=== PATIENT | female | born 1980 | race Caucasian/White ===

== ENCOUNTER → 2017-02-22 | Day surgery (SDC) | payer OTHER ==
[2017-02-22] VITALS (9 sets, daily range): BP systolic 112–163; BP diastolic 56–99; PULSE 63–91; TEMP 36.5; O2SAT 95–100; Ht 170.2 cm; Wt 86.3 kg
[~2017-02-22] VITALS: Ht 170.2 cm; Wt 86.3 kg
[~2017-02-22] MED LIST: ASPCH81X PO; ASTN; ATOR-26 PO; CHOLTAB11 PO; HYDR-3126 PO; LIDOCAINE HCL 2% 2 ML VIAL (20MG/ML) ONE; PRENTAB26 PO; PROPOFOL IV EMULSION 10 MG/ML 20 ML VIAL IV ONE
--- NOTE | 2017-02-22 07:32 | History & Physical Bridge Note ---
H&P Re-Evaluation Bridge Note: I have examined the patient, reviewed the History & Physical and in the interval since the performance of the History & Physical I have noted the following changes of clinical significance: Last Vital Signs Documentation Date Time Temp Pulse Resp B/P (MAP) Pulse Ox O2 Delivery O2 Flow Rate FiO2 02/22/17 07:19 36.5 81 16 140/89 98 Room Air No changes noted. Will proceed with EMILE as planned.
--- NOTE | 2017-02-22 08:10 | Cardiology Procedure Brief Nt ---
Preliminary Cardiology Note Procedure Date Feb 22, 2017. Pre-Procedure Diagnosis Stroke , PFO Post-Procedure Diagnosis stroke, PFO, ASD Procedure(s) Performed EMILE Filling Operator BUBBA Forbes DO Bobj Developer(s) CHESTER Arthur Estimated Blood Loss none Preliminary Findings The interatrial septum is aneurysmal. There are two defects in the interatrial septum, consistent with a PFO and small ASD, R to left and left to right shunts noted. Recommendations Consult interventional cardiology at [facility] for discussion regarding percutaneous closure, Outpt visit already scheduled for tomorrow. 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
--- NOTE | 2017-02-22 08:13 | Discharge Instructions ---
Discharge Instructions Procedure Procedure Date: Feb 22, 2017. Reason for Visit: Hx Of Stroke , assess for PFO Discharge Discharge Date: Feb 22, 2017. Discharge Diagnosis: PFO, small ASD Last Recorded Wt (Kilograms): 86.3 Anesthesia Post Anesthesia Instructions: If you have had General Anesthesia or IV Sedation: * Do not drive today. * Resume driving when surgeon permits. * Do not make important decisions or sign legal documents today. * Call surgeon for: 1. Temperature elevations greater than 101 degrees F. 2. Uncontrollable pain. 3. Excessive bleeding. 4. Persistent nausea and vomiting. 5. Medication intolerance (nausea, vomiting or rash). * For nausea and vomiting use only clear liquids such as: tea, soda, bouillon until nausea subsides, then gradually increase diet as tolerated. * If you have any concerns or questions, call your surgeon's office. If physician is unavailable and it is an emergency, call 911 or go to the nearest emergency room. Instructions Activity Recommendations: limitations as noted below Return to School/Work: with the following limitations Recommended Home Diet: resume previous diet Provider Instructions ACTIVITY RECOMMENDATIONS: Resume activities as tolerated with no limitations unless specified. _x_ No lifting over __10 pounds for 24 hours. _x_ Do not engage in vigorous exercise, sexual activity, or sports for 24 hours. _x_ Do not drive or operate any motorized equipment for 24 hours. _x_ You may return to work/school tomorrow. _x_ Nothing to eat or drink until gag reflex returns. __x No HOT or WARM liquids for 10__ hours. _x_ Avoid "scratchy" foods such as potato chips or pretzels for 24 hours following procedure. SPECIAL CARE: If you experience coughing up or vomiting of blood, contact _Dr Forbes __ Follow Up Follow-up with: Keep appointment with Dr Jean as scheduled. Maggie Razo Recommendations: Call your doctor if: * Temperature above 101 degrees * Pain not relieved by pain medicine ordered * There is increased drainage or redness from any incision * You have any unanswered questions or concerns. Your Doctors Instructions noted above were prepared by provider Jordon Forbes. Patient Signature Section: Patient Instructions Signature Page Michelle Shoemaker Patient (or Guardian) Signature/Date: I have read and understand the instructions given to me by my caregivers. Caregiver/RN/Doctor Signature/Date: The above-named patient and/or guardian has received patient instructions on this date. + Original Patient Signature Page (only) stays with chart. Please make copy for patient.
--- NOTE | 2017-02-22 08:56 | Anesthesiology Progress Note ---
Anesthesia Post Op Note Date & Time Feb 22, 2017 at 08:56 Vital Signs Pain Intensity: 0 Vital Signs Past 12 Hours Date Time Temp Pulse Resp B/P (MAP) Pulse Ox O2 Delivery O2 Flow Rate FiO2 02/22/17 08:30 65 16 131/74 (93) 95 Room Air 02/22/17 08:27 66 16 131/74 (93) 96 Room Air 02/22/17 08:17 69 16 122/70 (87) 96 Room Air 02/22/17 08:07 77 16 123/76 (92) 96 Room Air 02/22/17 08:05 63 16 123/76 100 Nasal Cannula 4 02/22/17 08:00 63 16 112/60 100 Nasal Cannula 4 02/22/17 07:55 64 16 113/56 100 Nasal Cannula 4 02/22/17 07:50 69 16 112/68 100 Nasal Cannula 4 02/22/17 07:45 73 16 115/81 100 Nasal Cannula 4 02/22/17 07:40 71 16 130/69 100 Nasal Cannula 4 02/22/17 07:35 36.5 84 16 130/69 (89) 100 Nasal Cannula 4 02/22/17 07:35 91 16 163/99 100 Nasal Cannula 4 02/22/17 07:19 36.5 81 16 140/89 98 Room Air Notes Mental Status: alert / awake / arousable, participated in evaluation Pt Amnestic to Procedure: Yes Nausea / Vomiting: adequately controlled Pain: adequately controlled Airway Patency, RR, SpO2: stable & adequate BP & HR: stable & adequate Hydration State: stable & adequate Anesthetic Complications: no major complications apparent
--- NOTE | 2017-02-22 11:56 | TEE ---
*NOTICE TO RECEIVING CONSTITUTION PARTY AGENCY This information is strictly Confidential and protected under [place] law. [place] law prohibits you from making any further disclosure of this information unless further disclosure is expressly permitted by the written consent of the person to whom it pertains or is authorized by law. A general authorization for the release of medical or other information is not sufficient for this purpose. Hospital accepts no responsibility if the information is made available to any other person, INCLUDING THE PATIENT. Interpretation Summary * Name: GITA CARRANZA Study Date: 02/22/2017 07:28 AM BP: 140/89 mmHg * Patient Location: [facility] HR: 79 * : 1980 (M/d/yyyy) Gender: Female Height: 67 in * Age: 37 yrs Ethnicity: [place] Weight: 190 lb * Ordering Physician: Jordon Forbes DO, FACC * Referring Physician: Jordon Forbes DO, FACC * Performed By: Robyn Laughlin RCS * * Reason For Study: HX OF STROKE * BSA: 2.0 m2 * -- Conclusions -- * The study was technically adequate for the referring indication. * There is a moderate sized PFO noted with moderate right to left shunt demonstrated with administration of agitated saline contrast. * There is separate fenestration of the interatrial septum with noted mild left to right shunt flow noted on color Doppler and PW Doppler. * Sedation was provided with the assistance of Dr Yates of anesthesia. The patient received a total of 420 mg of IV propofol. Procedure Details * EMILE Probe #3 was used for procedure. Time Out: 07 Probe In: 0739 Probe Out: 0838 * The study was performed in Cardiac Catheterization Lab. * Time out was conducted by the physician, nurse, and spray technician with positive identification of patient and procedure. * Informed consent for Transesophageal Echocardiogram was obtained prior to the procedure. * An intravenous line was placed. A topical anesthetic agent was used for oropharangeal anesthesia. A bite block was inserted. * Sedation performed by the anesthesia department. * The patient's vital signs, including blood pressure, heart rate, pulse oximetry and cardiac rhythm were monitored throughout the procedure . * A multifrequency, multiplane transesopheageal echocardiographic endoscope was inserted and manipulated in the standard fashion to achieve multiplane views. * The transesophageal probe was passed without difficulty. * The usual views were obtained; basal, mid-esophageal, transgastric and aortic views. * The patient tolerated the procedure well without evidence of orophangeal or esophageal trauma. * A 2D transesophageal echocardiogram with spectral and color flow Doppler was performed. * Contrast injection with agitated saline was performed. * A 2D transesophageal echocardiogram with Doppler and color flow Doppler was performed. Left Ventricle * The left ventricle is normal in size. * There is normal left ventricular wall thickness. * Left ventricular systolic function is normal. * Ejection Fraction = 60-65%. * The left ventricular wall motion is normal. Right Ventricle * The right ventricle is normal size. * The right ventricular systolic function is normal. Atria * The left atrial size is normal. * No thrombus is detected in the left atrial appendage. * No left atrial mass or thrombus visualized. * Right atrial size is normal. * A prominent eustachian valve is noted. * The atrial septum is aneurysmal. * There is a moderate sized PFO noted with moderate right to left shunt demonstrated with administration of agitated saline contrast. 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 Mitral Valve * The mitral valve is normal. * There is no mitral valve stenosis. * Significant mitral regurgitation is absent. Tricuspid Valve * The tricuspid valve is normal. * There is no tricuspid stenosis. * Significant tricuspid regurgitation is absent. Aortic Valve * The aortic valve is trileaflet. * Aortic stenosis is absent. * There is no significant aortic regurgitation. Pulmonic Valve * The pulmonary valve is not well seen, but the Doppler examination is normal without significant regurgitation or stenosis. Great Vessels * The aortic root and proximal ascending aorta are normal sized. Pericardium * There is no pericardial effusion.
== END | disposition home or self-care (01) ==
LOC: C.CATH 07:07
PROVIDERS: ATTEND Specialist
DX: Q21.1 Atrial septal defect (principal); Z86.73 Personal history of transient ischemic attack (TIA), and cerebral infarction without residual deficits; E78.5 Hyperlipidemia, unspecified; R51 Headache; Z79.82 Long term (current) use of aspirin; Z79.899 Other long term (current) drug therapy